=== PATIENT | female | born 1945 | race Hispanic/Latino ===

== ENCOUNTER 2017-12-10 08:44 | Day surgery (SDC) | payer MEDICARE, BC ==
[2017-12-10] MEDS ORDERED: Lidocaine 1% Inj (20ml) ONE (09:25)
[2017-12-10] MEDS ORDERED: Propofol 10 mg/ml Inj (20 ML) ONE (09:25)
[2017-12-10] MEDS ORDERED: Sodium Chloride 0.9% 1,000 ML IV SCH (11:15)
[2017-12-10 12:08] VITALS: BP 122/73; PULSE 64; RESP 18; TEMP 97.7; O2SAT 100
== END 2017-12-10 12:59 | disposition home or self-care (01) ==
LOC: ENDO 08:44
PROVIDERS: ATTEND Specialist
DX: D64.9 Anemia, unspecified (principal); K59.09 Other constipation; D50.9 Iron deficiency anemia, unspecified; K64.8 Other hemorrhoids; I10 Essential (primary) hypertension; R59.1 Generalized enlarged lymph nodes; M19.90 Unspecified osteoarthritis, unspecified site; Z96.652 Presence of left artificial knee joint; Z88.1 Allergy status to other antibiotic agents; Z88.0 Allergy status to penicillin; Z88.8 Allergy status to other drugs, medicaments and biological substances; K44.9 Diaphragmatic hernia without obstruction or gangrene; K21.9 Gastro-esophageal reflux disease without esophagitis
CPT/HCPCS: 45378; J2704; J7030

== ENCOUNTER 2018-01-08 07:37 | Day surgery (SDC) | payer MEDICARE, BC ==
[2018-01-01 09:43] VITALS: BMI 32.1
[2018-01-08] MEDS ORDERED: Sodium Chloride 0.9% 1,000 ML IV SCH (08:45)
[2018-01-08] MEDS ORDERED: Propofol 10 mg/ml Inj (20 ML) ONE (08:51)
[2018-01-08 09:25] VITALS: TEMP 97.6
[2018-01-08 10:43] VITALS: BP 137/85; PULSE 64; RESP 18; O2SAT 100
== END 2018-01-08 11:05 | disposition home or self-care (01) ==
LOC: ENDO 07:37
PROVIDERS: ATTEND Specialist
DX: K44.9 Diaphragmatic hernia without obstruction or gangrene (principal); D64.9 Anemia, unspecified; I10 Essential (primary) hypertension; E03.9 Hypothyroidism, unspecified; M19.90 Unspecified osteoarthritis, unspecified site
CPT/HCPCS: 43239; 88305; 88342; J2001; J2704; J7030; J7040

== ENCOUNTER 2018-05-28 10:18 | Outpatient (CLI) | payer MEDICARE, BC | END 2018-05-28 10:19 | disposition home or self-care (01) | LOC: RAD 10:18 | DX: Q40.1 Congenital hiatus hernia (principal) ==